=== PATIENT | female | born 1985 | race American Indian/Alaskan Native ===

== ENCOUNTER → 2024-12-01 | Outpatient (CLI) | payer OTHER, MEDICAID, SELFPAY ==
--- NOTE | 2024-12-01 16:22 | XR_ITS ---
Examination: Bilateral hips, AP pelvis, 5 views Technique: AP, lateral views both hips, AP pelvis, 5 views Exam date and time: December 01, 2024 at 1702 hours INDICATIONS: Hip pain months. FINDINGS: No right or left hip fracture or dislocation No significant arthritic changes Multiple foci intact IMPRESSION: No hip or pelvic fractures. No significant hip arthritic change
== END | disposition home or self-care (01) ==
LOC: CDIM 16:18
PROVIDERS: Referring Provider Physician Assistant; Visit Provider Physician Assistant
DX: M25.551 Pain in right hip (principal)
CPT/HCPCS: 73523